=== PATIENT | female | born 1995 | race Hispanic/Latino ===

== ENCOUNTER 2017-11-15 12:11 | Emergency (ER) | payer SELFPAY ==
[2017-11-15 12:57] VITALS: BP 125/78; PULSE 99; RESP 18; TEMP 97.8; O2SAT 100
--- NOTE | 2017-11-15 13:26 | ED PDOC ---
HPI: General Adult Time Seen by Provider: 11/15/17 13:11 Chief Complaint (Nursing): Abnormal Skin Integrity Chief Complaint (Provider): Abnormal Skin Integrity History Per: Patient History/Exam Limitations: no limitations Onset/Duration Of Symptoms: Days (x7) Current Symptoms Are (Timing): Still Present Additional Complaint(s): 21 y/o female presents to the ED complaining of lower lip swelling and purulent discharge, onset 4 days ago. Patient states she had lip injection 7 days ago that were filled with hyaluronic acid. Patient was told to follow up with plastic surgeon on filler removal thus prompting today's visit. Denies any other complaint at this time. PMD: None Provided. Past Medical History Reviewed: Historical Data, Nursing Documentation, Vital Signs Vital Signs: Last Vital Signs Temp 97.8 F 11/15/17 12:53 Pulse 99 H 11/15/17 12:53 Resp 18 11/15/17 12:53 BP 125/78 11/15/17 12:53 Pulse Ox 100 11/15/17 13:33 - Medical History PMH: No Chronic Diseases - Surgical History Surgical History: No Surg Hx - Family History Family History: States: Unknown Family Hx - Home Medications Home Medications: Ambulatory Orders Medication Instructions Recorded Clindamycin [Cleocin] 1 tab PO QID #28 cap 11/15/17 - Allergies Allergies/Adverse Reactions: Allergies Allergy/AdvReac Type Severity Reaction Status Date / Time Penicillins Allergy RASH Verified 11/15/17 12:53 Review of Systems ROS Statement: Except As Marked, All Systems Reviewed And Found Negative ENT: Positive for: Mouth Swelling (Lower lip swelling associated with purulent discharge. ) Physical Exam - Reviewed Nursing Documentation Reviewed: Yes Vital Signs Reviewed: Yes - Physical Exam Appears: Positive for: No Acute Distress Eye Exam: Positive for: Normal appearance ENT: Positive for: Other (Multiple small papular regions and indurated pastula noted on the lower lip. Multiple postula lesions also noted on the lower lip.) Neck: Positive for: Normal Cardiovascular/Chest: Negative for: Bradycardia, Tachycardia Respiratory: Negative for: Accessory Muscle Use, Respiratory Distress Extremity: Positive for: Normal ROM Neurologic/Psych: Positive for: Alert, Oriented - ECG O2 Sat by Pulse Oximetry: 100 (RA) Pulse Ox Interpretation: Normal Medical Decision Making Medical Decision Making: -- . -- Patient advised that if she were unable to follow up with a plastic surgeon, to return to the ER for re-evaluation/possible aspiration of pustules Scribe Attestation: Documented by Horace Oliva, acting as a scribe for Mary Carmen Greenberg PA-C. Provider Scribe Attestation: All medical record entries made by the Scribe were at my direction and personally dictated by me. I have reviewed the chart and agree that the record accurately reflects my personal performance of the history, physical exam, medical decision making, and the department course for this patient. I have also personally directed, reviewed, and agree with the discharge instructions and disposition. Disposition - Clinical Impression Clinical Impression: Pustule - Patient ED Disposition Is Patient to be Admitted: No - Disposition Referrals: Renny Boles MD [Medical Doctor] - Disposition: Routine/Home Disposition Time: 13:30 Condition: FAIR Additional Instructions: PLEASE CALL [phone] TO MAKE APPT WITH PLASTICS THE [place] OFFICE IS [address] [facility] THE [place] OFFICE IS [address] [place] [address] Prescriptions: Clindamycin [Cleocin] 1 tab PO QID #28 cap Instructions: Wound Infection Forms: [facility] (Maltese)
== END 2017-11-15 14:21 | disposition home or self-care (01) ==
LOC: H.ER 12:11
DX: L08.9 Local infection of the skin and subcutaneous tissue, unspecified (principal); Z88.0 Allergy status to penicillin